=== PATIENT | male | born 2000 | race Caucasian/White ===

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

== ENCOUNTER → 2022-10-15 16:13 | Outpatient (CLI) | payer BC, SELFPAY ==
--- NOTE | 2022-10-15 | XR_ITS ---
PROCEDURE INFORMATION: Exam: XR Left Knee Exam date and time: 10/15/2022 4:23 PM Age: 22 years old Clinical indication: Patient HX: [place] knee pop, left anterior knee pain TECHNIQUE: Imaging protocol: Radiologic exam of the Left knee. Views: 3 views. COMPARISON: No relevant prior studies available. FINDINGS: Bones/joints: No fractures, dislocations, or bone lesions. No significant joint space narrowing or widening. Soft tissues: No soft tissue gas, radiopaque foreign bodies, or masses. IMPRESSION: No radiographic abnormalities in the left knee.
== END ==
PROVIDERS: PCP Nurse Practitioner Family; Visit Provider Nurse Practitioner Family
DX: M25.562 Pain in left knee (principal); M25.662 Stiffness of left knee, not elsewhere classified
CPT/HCPCS: 73562

== ENCOUNTER 2024-05-19 11:10 | Outpatient (CLI) | payer BC, SELFPAY ==
[2024-05-22 09:36] LABS: Neisseria gonorrhoeae, NAA Negative (Negative)
[2024-05-28 10:01] LABS: Trichomonas Vaginalis, NAA NEGATIVE
== END 2024-05-19 23:59 | disposition home or self-care (01) ==
LOC: LAB.DROPOF 05-20 09:46
PROVIDERS: PCP Nurse Practitioner Family; Visit Provider Nurse Practitioner Family
DX: Z20.2 Contact with and (suspected) exposure to infections with a predominantly sexual mode of transmission (principal)
CPT/HCPCS: 87491; 87591; 87661

== ENCOUNTER 2024-07-17 09:54 | Outpatient (CLI) | payer BC, SELFPAY ==
[2024-07-17 10:16] LABS: Basophils # 0.1 K/mm3 (0-0.2); Basophils % 1.6 % (0.1-2.0); Eosinophils # 0.5 K/mm3 (0.0-0.4); Hematocrit 42.4 % (42.0-52.0); Hemoglobin 14.6 g/dL (14.1-18.0); Lymphocytes # 3.5 K/mm3 (0.7-4.5); Lymphocytes % 51.3 % (10-50); Mean Corpuscular HGB Conc 34.4 g/dL (31.8-35.4); Mean Corpuscular Hemoglobin 30.4 pg (27.0-31.2); Mean Corpuscular Volume 88.4 fl (80-94); Mean Platelet Volume 6.8 fl (7.4-10.4); Monocytes # 0.4 K/mm3 (0.1-1.0); Monocytes % 6.1 % (1.7-9.3); Neutrophils # 2.3 K/mm3 (1.8-7.8); Platelet Count 284 K/mm3 (142-424); Red Cell Distribution Width 13.8 % (11.5-17.5); White Blood Count 6.8 K/mm3 (4.8-10.8)
[2024-07-17 10:32] LABS: MANUAL DIFFERENTIAL MANUAL DIFFERENTIAL (MANUAL DIFF)
[2024-07-17 10:35] LABS: Albumin Level 4.3 g/dl (3.5-5.0); Chloride 107 mmol/L (98-107); Potassium 4.2 mmoL/L (3.5-5.1); Sodium 141 mmol/L (136-145)
[2024-07-17 10:38] LABS: Alanine Aminotransferase 117 U/L (12-78); Albumin/Globulin Ratio 1.4 (1.1-1.8); Alkaline Phosphatase 186 U/L (38-126); Anion Gap 12.2 mEq/L (5-15); Aspartate Amino Transferase 86 U/L (17-59); Blood Urea Nitrogen 9 mg/dl (9-20); Carbon Dioxide 26 mmol/L (22.0-30.0); Estimated Glomerular Filt Rate 121 ml/min (>60); GFR (African American) 146 ML/MIN (>60); Total Protein,Serum 7.3 g/dl (6.3-8.2)
[2024-07-17 10:39] LABS: Calcium 9.6 mg/dl (8.4-10.2); Glucose 99 mg/dl (74-100)
[2024-07-17 13:25] LABS: Eosinophils % 5 % (0-3); Lymphocytes % 59 % (10-50); Monocytes % 5 % (2-9); Neutrophils % 31 % (42-76); Platelet Estimate Normal; RBC Morphology Normal; Total Cells Counted 100
== END 2024-07-17 23:59 | disposition home or self-care (01) ==
PROVIDERS: PCP Pediatrics; Visit Provider Internal Medicine Cardiovascular Disease
DX: Q20.3 Discordant ventriculoarterial connection (principal); Q25.6 Stenosis of pulmonary artery
CPT/HCPCS: 36415; 80053; 85007; 85025; 85027